=== PATIENT | female | born 1945 | race Caucasian/White ===

== ENCOUNTER 2023-11-21 06:24 | Emergency (ER) | payer OTHER, SELFPAY ==
--- NOTE | 2023-11-21 06:28 | ED.GENMED ---
History of Present Illness
General
Chief Complaint: Breathing Problem
Source: patient and ambulance crew
Time Seen by Provider: 11/21/23 06:28
History of Present Illness
History of Present Illness:
78 yr old female presents to ED with c/o congestion/prod cough for about a week. She was overall doing well until approx 1am, when she noted sob and ultimately called medics. Upon EMS arrival, pox nl, bp sl elevated, and ?sl rales at L base. Pt
was c/o n at that time, given zofran 4 mg on tx and remained stable. Blood sugar 90. Patient states that her daughter, whom she lives with, was recently ill. She thinks that she became sick because of that contact. She also notes that her
just 1 week ago. She denies fever, chills, anorexia (had pizza for dinner last night). She does report a dry mouth. She also denies pain in her chest but says she has a 'awareness' of the front of her chest for several days. She
denies any changes to this with deep breath. She also notes, when asked, she has very mild discomfort in her mid back 'where my lungs would be'. Patient is compliant with her DOAC. She denies leg swelling.
Past History
Past History
ED Past Medical History: Arrthythmia
ED Past Surgical History: Cardiac
Social History
Tobacco: Non-smoker
Alcohol: Daily
Drug: None
Personal:
Living: with family
Phy Exam
Physical Exam
Physical Exam:
GENERAL: Alert , in no apparent distress but appears anxious
EYE: pupils equal and reactive
NECK: Supple, no significant adenopathy.
ENT: o/p clr, mm dry
CARDIAC: Regular rate and rhythm .
LUNGS: Equal breath sounds bilaterally, no acute respiratory distress, speaks in full sentences easily, very slight wheezing noted with questionable rhonchi at the left base area
ABDOMEN: Soft, without focal tenderness, no r/g, no cvat
NEUROLOGICAL: Alert and oriented, no focal neuro deficits
SKIN: Warm and dry, skin intact.
MUSCULOSKELETAL: No edema, well perfused.
PSYCH: Normal and appropriate interaction but does appear slightly anxious.
Scores
Heart Failure Risk
Heart Failure Risk Score: Not Applicable
Course
Orders/Labs/Results
Orders:
Orders
11/21/23 06:39
Cardiac Monitoring- Treatment ONCE
Albuterol Nebs [Ventolin Nebules] 2.5 mg INH R NOW STA
Pulse Ox/cont/shift [RESP] Stat
Quantity: 1
11/21/23 06:40
Electrocardiogram (*1) Stat
Reason for Study: Other
Other Reason for Exam: pneumonia
EKG- Treatment ONCE
CR Chest - 2 Views Urgent
Comment:
Reason For Exam: sob
Peak Flow Rate [RESP] Urgent
Quantity: 1
Pre-Bronchodilator: Yes
Post Bronchodilator: Yes
Special Instructions: Pre and Post Peak Flow before and after Bronchodilator
11/21/23 06:43
COVID-19 Antigen Urgent
Source: Nasal Swab
Complete Blood Count/No Diff Urgent
Comprehensive Metabolic Panel Urgent
Lactic Acid Q4H
Comment: CANCEL 2nd LACTIC ACID IF 1st LACTIC ACID IS LESS THAN 2
NT-proBNP Urgent
Troponin I Urgent
Blood Culture Q30M
NILE Source: Blood/Venous
Specimen Description:
Blood Culture Q30M
NILE Source: Blood/Venous
Specimen Description:
Influenza A+B Rapid Molecular Urgent
NILE Source: Nasal Swab
Specimen Description:
11/21/23 08:00
Potassium Chloride [KCl] 40 meq PO NOW STA
11/21/23 10:45
Lactic Acid Q4H
Comment: CANCEL 2nd LACTIC ACID IF 1st LACTIC ACID IS LESS THAN 2
Abnormal Lab Results
11/21/23
06:43
MCH 32.4 H pg
(27.0-31.0)
Sodium 129 L mmol/L
(135-145)
Potassium 3.3 L mmol/L
(3.5-5.1)
Chloride 94 L mmol/L
(98-107)
Creatinine 0.4 L mg/dL
(0.6-1.0)
Glucose 128 H mg/dl
(70-99)
AST 40 H U/L
(14-36)
11/21/23 06:43
11/21/23 06:43
Vital Signs
Initial and Last Documented VS:
Initial Vital Signs
Temp Pulse Resp BP Pulse Ox
97.6 F 63 19 161/83 95
11/21/23 06:31 11/21/23 06:31 11/21/23 06:31 11/21/23 06:31 11/21/23 06:31
Last Documented Vital Signs
Temp Pulse Resp BP Pulse Ox
97.6 F 63 19 161/83 95
11/21/23 06:31 11/21/23 06:31 11/21/23 06:31 11/21/23 06:31 11/21/23 06:31
*Critical Care Note
Total Time (30-74mins, 75-104mins- exclusive of procedures): Not Applicable
Update Note
Update Note:
Patient presents to the Emergency Department with _shortness of breath
Number and Complexity of Problems Addressed at the Encounter
� Chronic conditions affecting care:
� Acute Exacerbation and/or Progression of Chronic Illness:
� Differential Diagnosis includes: But not limited to bronchitis, pneumonia, anxiety, heart failure, ACS, etc.
Amount and/or Complexity of Data to be Reviewed and Analyzed
� I performed an independent evaluation of and my interpretation is:
EKG:read by me, nl rate, nl axis, no ischemia noted
CT:
Xrays:cxr read by me, nad
Laboratory Studies:hypoNa noted (unclear if new/old, no prior to compare), mild hypoK, lactic wnl
Other:
� Review of other/old records reveals:
� Clinical information was obtained by an independent historian:
� Prescriptions/Medications Considered but not given:
� Further testing considered but not performed:
Risk of Complications and/or Morbidity or Mortality of Patient Management
� Social determinants of health affecting care:
� Discussion with other providers (PCP, Hospitalists, Consultants, etc):
� Escalation of care including admission/observation vs risk of discharge considered: 8:20 AM repeat assessment, patient walked to the bathroom with ease, overall extremely well-appearing, feels better status post nebulizer.
Lungs now clear to auscultation. I do not appreciate a cough during my time bedside with patient. She is in no distress. She is aware of her mild hyponatremia and hypokalemia and admits that she has not been taking her potassium pills recently.
I do not identify any medications in her med list that could precipitate hyponatremia and this is seemingly a new finding, however she is asymptomatic with this. She was given copies of her lab work and recommended to see her doctor on Thursday
morning for repeat assessment regarding. I suspect patient has bronchitis clinically, clinically doubt ACS, PE (specially because anticoagulated), etc. Discussed with patient portance of follow-up and reasons to return to the ER.
ED Attending Note
-
Portions of this chart may have been created with voice recognition software.� Occasional wrong word or��sound alike� substitutions may have occurred due to the inherent limitations of voice recognition software.
Discharge Plan
Departure
Patient Disposition: Home (Routine Discharge)
Date of Disposition: 11/21/23
Time of Disposition: 08:16
Patient with high blood pressure during this ER visit?: Yes
Condition: Good
Discharge Problem:
Bronchitis
Instructions: Bronchitis, Adult ED, Hyponatremia, BLOOD PRESSURE
Prescriptions:
New
albuterol-budesonide 90-80 mcg/actuation HFA aerosol inhaler
2 inh inhalation BID PRN (Reason: shortness of breath) Qty: 10.7 0RF
doxycycline hyclate 100 mg capsule
100 mg PO BID 7 Days Qty: 14 0RF
No Action
levothyroxine [Synthroid] 88 mcg Tablet
88 mcg PO DAILY
alprazolam 0.25 mg Tablet
0.25 mg PO DAILY PRN (Reason: anxiety )
omeprazole 10 mg Capsule,Delayed Release(Dr/Ec)
10 mg PO DAILY
potassium citrate 10 mEq (1,080 mg) Tablet Extended Release
10 meq PO TID
flecainide 50 mg Tablet
50 mg PO HS
flecainide 100 mg Tablet
100 mg PO DAILY
Patient Comments:
Take 100mg in AM and 50mg HS
metoprolol succinate 25 mg Tablet Extended Release 24 Hr
25 mg PO DAILY
ezetimibe 10 mg Tablet
10 mg PO HS
rosuvastatin 5 mg Tablet
5 mg PO DAILY
Eliquis 5 mg Tablet
5 mg PO BID
SlowMag Muscle Recovery 85 mg Tablet,Chewable
400 mg PO
Referrals:
Alfonso Wang MD [Family Provider] - 11/23/23
Activity Restrictions/Additional Instructions:
YOUR SODIUM LEVEL IS SLIGHTLY LOWER THAN NORMAL AND NEEDS TO BE RECHECKED ON THURSDAY. SEE ATTACHED LAB VALUES. PLEASE BRING THIS TO YOUR PHYSICIAN ON THURSDAY. IF YOU DEVELOP INCREASING OR PERSISTENT SHORTNESS OF BREATH, SHAKING CHILLS, CHEST PAIN
OR PRESSURE, VOMITING, SWELLING, OR OTHER WORRISOME SIGNS, PLEASE RETURN TO THE ER IMMEDIATELY.
Interventions
Interventions:
*General Assessment Last Done: 11/21/23 06:31
*Neglect/Abuse Screening Last Done: 11/21/23 06:31
ED- Fall Risk Assessment Last Done: 11/21/23 07:06
*ED COVID-19 Vaccine History Last Done: 11/21/23 06:31
ED- Cardiac Assessment Last Done: 11/21/23 07:06
ED- Pulmonary Assessment Last Done: 11/21/23 07:06
Discharge Date and Time
Print Language: BURKINAN
[2023-11-21 06:31] VITALS: BP 161/83
[2023-11-21 06:33] VITALS: BMI 27.3
[2023-11-21 06:56] LABS: Hemoglobin 13.6 g/dL (12.0-16.0); Mean Corp Hgb Conc. 35.8 g/dL (33.0-37.0); Mean Corpuscular Hgb 32.4 pg (27.0-31.0); Mean Corpuscular Volume 90.5 fL (81.0-99.0); Mean Platelet Volume 9.6 fL (7.4-10.4); Platelet Count 189 10^3/uL (130-400); Red Cell Dist. Width 12.5 % (11.5-14.5)
[2023-11-21] MEDS: VENTOLIN NEBULES 2.5 MG INH (07:01)
[2023-11-21 07:09] LABS: ALT (SGPT) 33 U/L (0-35); AST (SGOT) 40 U/L (14-36); Albumin 4.2 g/dl (3.5-5.0); Alkaline Phosphatase 71 U/L (38-126); Blood Urea Nitrogen 8 mg/dl (7-17); Calcium 9.2 mg/dl (8.4-10.2); Carbon Dioxide 24 mmol/L (22-30); Chloride 94 mmol/L (98-107); Estimated Creatinine Clearance 75 ml/min; Glucose 128 mg/dl (70-99); Potassium 3.3 mmol/L (3.5-5.1); Sodium 129 mmol/L (135-145); Total Bilirubin 0.8 mg/dl (0.2-1.3); Total Protein 6.6 g/dl (6.3-8.2); eGFR > 60.00
[2023-11-21 07:10] LABS: Lactic Acid 1.4 mmol/L (0.7-2.0)
[2023-11-21 07:12] LABS: COVID-19 Antigen Negative (Negative)
[2023-11-21 07:22] LABS: NT-proBNP 391 pg/ml; Troponin I < 0.012 ng/ml
[2023-11-21] MEDS: VIBRAMYCIN 100 MG PO (08:18)
[2023-11-21] MEDS: KCL 40 MEQ PO (08:18)
== END 2023-11-21 09:50 | disposition home or self-care (01) ==
LOC: EMR 06:24
PROVIDERS: EMERGENCY PHYSICIAN Emergency Medicine; FAMILY PHYSICIAN Internal Medicine
DX: J20.9 Acute bronchitis, unspecified (principal); R68.2 Dry mouth, unspecified; R03.0 Elevated blood-pressure reading, without diagnosis of hypertension; Z63.4 Disappearance and death of family member; Z11.52 Encounter for screening for COVID-19; Z88.6 Allergy status to analgesic agent; Z88.5 Allergy status to narcotic agent; Z79.01 Long term (current) use of anticoagulants
CPT/HCPCS: 99284; 94640; 94760; 71046; 80053; 83605; 83880; 84484; 85027; 87040; 87502; 87811; 93005

== ENCOUNTER 2025-06-08 17:38 | Inpatient (IN) | payer OTHER, SELFPAY ==
[2025-06-08] VITALS (7 sets, daily range): BP systolic 142–185; BP diastolic 73–102; BMI 28.3
[2025-06-08 15:31] LABS: Hematocrit 36.4 % (37.0-47.0); Hemoglobin 13.5 g/dL (12.0-16.0); Mean Corp Hgb Conc. 37.1 g/dL (33.0-37.0); Mean Corpuscular Volume 86.3 fL (81.0-99.0); Nucleated Red Blood Cells % 0 %; Platelet Count 277 10^3/uL (130-400); Red Cell Dist. Width 11.9 % (11.5-14.5)
[2025-06-08 15:56] LABS: ALT (SGPT) 47 U/L (0-35); AST (SGOT) 38 U/L (14-36); Albumin 4.6 g/dl (3.5-5.0); Alkaline Phosphatase 81 U/L (38-126); Blood Urea Nitrogen 5 mg/dl (7-17); Calcium 9.2 mg/dl (8.4-10.2); Carbon Dioxide 25 mmol/L (22-30); Chloride 84 mmol/L (98-107); Glucose 121 mg/dl (70-99); Lipase 59 U/L (23-300); Potassium 3.5 mmol/L (3.5-5.1); Sodium 118 mmol/L (135-145); Total Protein 7.0 g/dl (6.3-8.2); eGFR > 60.00
--- NOTE | 2025-06-08 16:04 | ED.GENMED ---
History of Present Illness
<Nhi Jara PA-C - Last Filed: 06/08/25 19:47>
General
Chief Complaint: Abdominal Symptoms
Source: patient
Exam Limitations: none
Time Seen by Provider: 06/08/25 15:45
History of Present Illness
History of Present Illness:
80yoF with a history of atrial fibrillation on flecainide and Eliquis, hypertension, hyperlipidemia, hypothyroidism presenting for evaluation of nausea. Symptoms have been ongoing for over a year and initially began after her in
October 2023. She has been following with her PCP and gastroenterology. She previously underwent endoscopy, colonoscopy, and CT scan without any obvious etiology for her symptoms. She was referred to psychiatry and was started on Zoloft about 5 weeks
ago. She has Zofran and Compazine at home which have not been helping. Her symptoms have been worsening over the past few days. She also feels constipated. Last bowel movement was yesterday but she had to strain and only passed a very small
amount of hard stool. She has some abdominal bloating and some pressure in her lower abdomen but she denies any overt pain. No vomiting. No chest pain or shortness of breath.
Past History
<Nhi Jara PA-C - Last Filed: 06/08/25 19:47>
Past History
ED Past Medical History: Arrthythmia
ED Past Surgical History: Cardiac
Social History
Tobacco: Non-smoker
Alcohol: Daily
Drug: None
Personal:
Living: with family
Phy Exam
<Nhi Jara PA-C - Last Filed: 06/08/25 19:47>
General Physical Exam
General Presentation: well appearing
General Skin: warm and dry
General Habitus: normal and elderly
General Mental: alert
General Hydration: appears well hydrated
ENT Exam
ENT Exam: normocephalic
Cardiovascular Exam
Cardiovascular Exam: regular rate/rhythm and no edema
Pulmonary Exam
Pulmonary Exam: lungs clear, no respiratory distress, no rales, no crackles, no rhonchi and no wheezing
Gastrointestinal Exam
Gastrointestinal Exam: non tender, soft and non distended
Neurological Exam
Neurological Exam: alert
[place] Coma Scale
Eye Opening: Spontaneous
Verbal Response: Oriented
Motor Response: Obeys Commands
GCS Total Score: 15
Skin Exam
Skin Exam: normal color and warm/dry
Psychiatric Exam
Psychiatric Exam: normal mood/affect
<Jadiel Carr MD - Last Filed: 06/08/25 22:08>
[place] Coma Scale
GCS Total Score: 15
Course
<Nhi Jara PA-C - Last Filed: 06/08/25 19:47>
Orders/Labs/Results
Orders:
Orders
06/08/25 Dinner
Regular
At Your Request: Full Participation
Does patient need a safe tray?: No
06/08/25 15:09
IV Insert/Care/Rem.- Treatment PRN
06/08/25 15:16
Complete Blood Count/With Diff Urgent
Comprehensive Metabolic Panel Urgent
Lipase Urgent
06/08/25 16:00
EKG [Electrocardiogram (*1)] Urgent
Reason for Study: Other
Other Reason for Exam: nausea
06/08/25 16:01
Electrocardiogram (*1) Urgent
Reason for Study: Other
Other Reason for Exam: nausea
CT Abd/pelvis W Iv Cont Urgent
Comment:
Reason For Exam: abd bloating, constipation
EKG- Treatment ONCE
EKG- Treatment ONCE
Ondansetron Injectable [Zofran] 4 mg IV NOW STA
06/08/25 16:16
Metoclopramide [Reglan] 5 mg IV NOW STA
06/08/25 16:21
Osmolality, Random Urine Urgent
Date Specimen was Collected: 06/08/25
Time Specimen was Collected: 16:13
Troponin I Urgent
Urine Sodium Urgent
Date Specimen was Collected: 06/08/25
Time Specimen was Collected: 16:13
06/08/25 16:38
3% Sodium Chloride 250 ml [Sodium Chloride 3%] 250 ml IV ONCE
06/08/25 17:00
3% Sodium Chloride 250 ml [Sodium Chloride 3%] 250 ml IV ONCE
06/08/25 17:03
Admit/Transfer Patient As Directed
Co-Sign Provider:
Level of Care: Inpatient admission
Assign to:: Telemetry
Physician / Group: poornima
Diagnosis: hyponatremia
Reason for Telemetry: Arrhythmia
Date to Stop Telemetry: 06/11/25
Time to Stop Telemetry: 11:00
Reason for Hospitalization: hyponatremia
Expected length of stay greater than two midnights?: Yes
ELOS- Estimated Length of Stay in days: 2
I certify the patient meets the requirements for IP care: Yes
06/08/25 17:04
Code Status As Directed
Resuscitation Status: Do not resuscitate
Reached after discussion with pt or family/Healthcare POA: Yes
DNR Bracelet Application ONCE
PRN Pain Medication Management As Directed
May give lesser potent ordered pain med per pt: Yes
preference::
Protocol:: Medication orders for pain may be administered in a
manner that supports deferring to patient preference
when the pt is:
- Requesting an ordered lesser potent pain medication.
Least to most potent pain medications are defined
as: acetaminophen < NSAID < tramadol < opioids
(morphine, oxycodone, hydromorphone).
- Requesting a lesser dose of the same medication IF
ORDERED.
- Requesting a less intrusive route of administration
if both routes are prescribed by the provider (PO <
IV).
06/08/25 18:20
Ondansetron Injectable [Zofran] 4 mg IV Q6HPRN PRN
06/08/25 18:20
NEPHROLOGY CONSULT Routine
Consulting Provider: Vini Cowart
Was physician already notified: Yes
VTE Contraindication Routine
VTE Mechanical Device Contraindication: Medical Contraindication
Pharmocologic Contraindication: Medical Contraindication
Activity As Directed
Activity Level: As Tolerated
Vital Signs As Directed
Frequency: Per unit guidelines
06/08/25 20:08
BMP [Basic Metabolic Panel] Q4
TSH Reflex To Free T4 Routine
06/08/25 22:00
Metoclopramide [Reglan] 10 mg IV Q6HPRN PRN
06/09/25 06:00
Complete Blood Count/With Diff IN AM
Comprehensive Metabolic Panel IN AM
06/11/25 11:00
DC Protocol for Telemetry ONCE
Abnormal Lab Results
06/08/25 06/08/25
15:16 16:21
Hct 36.4 L %
(37.0-47.0)
MCH 32.0 H pg
(27.0-31.0)
MCHC 37.1 H g/dL
(33.0-37.0)
Absolute Neuts (auto) 7.6 H 10^3/uL
(1.4-6.5)
Absolute Lymphs (auto) 0.9 L 10^3/uL
(1.2-3.4)
Absolute Monos (auto) 0.8 H 10^3/uL
(0.1-0.6)
Neutrophils % 81.0 H %
(42.2-75.2)
Lymphocytes % 9.5 L %
(20.5-51.1)
Sodium 118 L* mmol/L
(135-145)
Chloride 84 L mmol/L
(98-107)
BUN 5 L mg/dl
(7-17)
Creatinine 0.5 L mg/dL
(0.6-1.0)
Glucose 121 H mg/dl
(70-99)
Total Bilirubin 1.8 H mg/dl
(0.2-1.3)
AST 38 H U/L
(14-36)
ALT 47 H U/L
(0-35)
Urine Sodium 122 H mmol/L
(30-90)
06/08/25 15:16
06/08/25 15:16
Vital Signs
Initial and Last Documented VS:
Initial Vital Signs
Temp Pulse Resp BP Pulse Ox
97.7 F 78 20 160/90 99
06/08/25 14:29 06/08/25 14:29 06/08/25 14:29 06/08/25 14:29 06/08/25 14:29
Last Documented Vital Signs
Temp Pulse Resp BP Pulse Ox
97.7 F 80 18 163/100 97
06/08/25 18:46 06/08/25 19:24 06/08/25 18:46 06/08/25 19:24 06/08/25 18:46
<Jadiel Carr MD - Last Filed: 06/08/25 22:08>
Orders/Labs/Results
Orders:
Orders
06/08/25 Dinner
Regular
At Your Request: Full Participation
Does patient need a safe tray?: No
06/08/25 15:09
IV Insert/Care/Rem.- Treatment PRN
06/08/25 15:16
Complete Blood Count/With Diff Urgent
Comprehensive Metabolic Panel Urgent
Lipase Urgent
06/08/25 16:00
EKG [Electrocardiogram (*1)] Urgent
Reason for Study: Other
Other Reason for Exam: nausea
06/08/25 16:01
Electrocardiogram (*1) Urgent
Reason for Study: Other
Other Reason for Exam: nausea
CT Abd/pelvis W Iv Cont Urgent
Comment:
Reason For Exam: abd bloating, constipation
EKG- Treatment ONCE
EKG- Treatment ONCE
Ondansetron Injectable [Zofran] 4 mg IV NOW STA
06/08/25 16:16
Metoclopramide [Reglan] 5 mg IV NOW STA
06/08/25 16:21
Osmolality, Random Urine Urgent
Date Specimen was Collected: 06/08/25
Time Specimen was Collected: 16:13
Troponin I Urgent
Urine Sodium Urgent
Date Specimen was Collected: 06/08/25
Time Specimen was Collected: 16:13
06/08/25 16:38
3% Sodium Chloride 250 ml [Sodium Chloride 3%] 250 ml IV ONCE
06/08/25 17:00
3% Sodium Chloride 250 ml [Sodium Chloride 3%] 250 ml IV ONCE
06/08/25 17:03
Admit/Transfer Patient As Directed
Co-Sign Provider:
Level of Care: Inpatient admission
Assign to:: Telemetry
Physician / Group: poornima
Diagnosis: hyponatremia
Reason for Telemetry: Arrhythmia
Date to Stop Telemetry: 06/11/25
Time to Stop Telemetry: 11:00
Reason for Hospitalization: hyponatremia
Expected length of stay greater than two midnights?: Yes
ELOS- Estimated Length of Stay in days: 2
I certify the patient meets the requirements for IP care: Yes
06/08/25 17:04
Code Status As Directed
Resuscitation Status: Do not resuscitate
Reached after discussion with pt or family/Healthcare POA: Yes
DNR Bracelet Application ONCE
PRN Pain Medication Management As Directed
May give lesser potent ordered pain med per pt: Yes
preference::
Protocol:: Medication orders for pain may be administered in a
manner that supports deferring to patient preference
when the pt is:
- Requesting an ordered lesser potent pain medication.
Least to most potent pain medications are defined
as: acetaminophen < NSAID < tramadol < opioids
(morphine, oxycodone, hydromorphone).
- Requesting a lesser dose of the same medication IF
ORDERED.
- Requesting a less intrusive route of administration
if both routes are prescribed by the provider (PO <
IV).
06/08/25 18:20
Ondansetron Injectable [Zofran] 4 mg IV Q6HPRN PRN
06/08/25 18:20
NEPHROLOGY CONSULT Routine
Consulting Provider: Vini Cowart
Was physician already notified: Yes
VTE Contraindication Routine
VTE Mechanical Device Contraindication: Medical Contraindication
Pharmocologic Contraindication: Medical Contraindication
Activity As Directed
Activity Level: As Tolerated
Vital Signs As Directed
Frequency: Per unit guidelines
06/08/25 20:08
BMP [Basic Metabolic Panel] Q4
TSH Reflex To Free T4 Routine
06/08/25 22:00
Metoclopramide [Reglan] 10 mg IV Q6HPRN PRN
06/09/25 06:00
Complete Blood Count/With Diff IN AM
Comprehensive Metabolic Panel IN AM
06/11/25 11:00
DC Protocol for Telemetry ONCE
Abnormal Lab Results
06/08/25 06/08/25
15:16 16:21
Hct 36.4 L %
(37.0-47.0)
MCH 32.0 H pg
(27.0-31.0)
MCHC 37.1 H g/dL
(33.0-37.0)
Absolute Neuts (auto) 7.6 H 10^3/uL
(1.4-6.5)
Absolute Lymphs (auto) 0.9 L 10^3/uL
(1.2-3.4)
Absolute Monos (auto) 0.8 H 10^3/uL
(0.1-0.6)
Neutrophils % 81.0 H %
(42.2-75.2)
Lymphocytes % 9.5 L %
(20.5-51.1)
Sodium 118 L* mmol/L
(135-145)
Chloride 84 L mmol/L
(98-107)
BUN 5 L mg/dl
(7-17)
Creatinine 0.5 L mg/dL
(0.6-1.0)
Glucose 121 H mg/dl
(70-99)
Total Bilirubin 1.8 H mg/dl
(0.2-1.3)
AST 38 H U/L
(14-36)
ALT 47 H U/L
(0-35)
Urine Sodium 122 H mmol/L
(30-90)
06/08/25 15:16
06/08/25 15:16
Vital Signs
Initial and Last Documented VS:
Initial Vital Signs
Temp Pulse Resp BP Pulse Ox
97.7 F 78 20 160/90 99
06/08/25 14:29 06/08/25 14:29 06/08/25 14:29 06/08/25 14:29 06/08/25 14:29
Last Documented Vital Signs
Temp Pulse Resp BP Pulse Ox
97.7 F 80 18 163/100 97
06/08/25 18:46 06/08/25 19:24 06/08/25 18:46 06/08/25 19:24 06/08/25 18:46
<Nhi Jara PA-C - Last Filed: 06/08/25 19:47>
MDM/Problems Addressed
Differential Diagnosis Includes:
80yoF here with ongoing nausea for >1 year that is worsening x several days. No vomiting. She is hypertensive with otherwise normal vitals. Abdominal exam benign. Differential diagnosis includes: malignancy, PUD, GERD, dehydration, consider ACS
Labs obtained in triage. Severe hyponatremia noted with a sodium of 118. Last sodium was 129 in November 2023. She was recently started on Zoloft 5 weeks ago. She also takes chlorthalidone and flecainide. 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
appears euvolemic. Urine studies ordered. Discussed case with nephrology who recommends hypertonic saline at 20cc/hr. Patient admitted for further management.
<Nhi Jraa PA-C - Last Filed: 06/08/25 19:47>
*Pulse Oximetry
SaO2: 99
Oxygen Mode of Delivery: Room air
Patient hypoxic: no
*EKG
Interpreted by ED Provider?: Yes
EKG Intrepretation Date: 06/08/25
Heart Rate: 72
Rate: normal
Rhythm: sinus
Interval: long QT (QTc 483)
Ischemia: non-specific ST changes
*Critical Care Note
Total Time (30-74mins, 75-104mins- exclusive of procedures): Not Applicable
ED Attending Note
<Nhi Jara PA-C - Last Filed: 06/08/25 19:47>
-
Portions of this chart may have been created with voice recognition software.� Occasional wrong word or��sound alike� substitutions may have occurred due to the inherent limitations of voice recognition software.
<Jadiel Carr MD - Last Filed: 06/08/25 22:08>
ED Attending Note
Patient seen and examined by attending physician: Yes
I performed the substantive portion of visit, reviewed & personally made and approve the management plan that is documented in note by myself or SAMIA.: Yes
ED Attending Note:
I have seen and evaluated the patient with a [id number] encounter. I have spoken to the [SAMIA] and involved in the medical history, the physical exam, medical decision making.
Evaluation and management service: agree unless noted differently below.
Results interpretation: agree unless noted differently below.
80-year-old woman presenting to the emergency department with nausea vomiting for the past few days. Patient does state that she is on flecainide and recently was started on Zoloft when her symptoms worsen. She has had a full workup done by GI and
followed up with her PCP. On my examination patient does not appear dehydrated. Abdomen is soft nondistended nontender. Blood work does show critical hyponatremia of 118. Could be secondary to SIADH given Zoloft. Discussed with nephrology who
recommend hypertonic saline. Patient will need admission for further management.
Discharge Plan
Departure
Patient Disposition: Admit
Date of Disposition: 06/08/25
Time of Disposition: 16:18
Presentation/result/management discussed w/ accepting MD/DO: Hospitalist
Discharge Problem:
Hyponatremia, Nausea
Interventions
Interventions:
*General Assessment Last Done: 06/08/25 16:16
*Neglect/Abuse Screening Last Done: 06/08/25 16:16
*ED COVID-19 Vaccine History Last Done: 06/08/25 18:41
*ED Influenza Vaccine History Last Done: 06/08/25 14:24
[facility] Risk Assessment Tool Last Done: 06/08/25 18:03
*Risk Screen - Suicide (C-SSRS) Last Done: 06/08/25 14:24
*Nursing Disposition Last Done: 06/08/25 18:38
ZH-Xbsner-Uxyxkgosbj Assessment Last Done: 06/08/25 16:16
Discharge Date and Time
Discharge Date/Time: 06/08/25 18:39
[2025-06-08 16:59] LABS: Troponin I < 0.012 ng/ml
--- NOTE | 2025-06-08 17:08 | HPS.HSE ---
Addendum entered and electronically signed by Dexter Nava MD 06/08/25 19:11:
Hyponatremia secondary to Chlorthalidone plus addition of Zoloft. Hold both for now. Likely can continue only Zoloft after improvement of hyponatremia.
Original Note:
Family Physician
-
Family Physician: Alfonso Wang
Chief Complaint
-
nausea
History of Present Illness
80-year-old female past medical history of atrial fibrillation on Eliquis with pacemaker, hypertension, hyperlipidemia, hypothyroidism, presenting for nausea. Nausea and abdominal pain has been ongoing for a year initially started after her
in October 2023. She has been following with her primary care and gastroenterology. She previously underwent endoscopy, colonoscopy and CT scan without any obvious etiology of her symptoms. She was referred to psychiatry on Zoloft 5 weeks
ago. She has been taking Zofran and Compazine which helped improvement. Symptoms worsening over the past few days. He also feels constipated. Her last bowel movement yesterday but she had to strain and only pass a very small amount of hard
stool. She has some abdominal bloating and pressure in her lower abdomen but denies any overt pain. No chest pain or shortness of breath.
Dose of Zoloft was increased last week. She has not been drinking a lot of fluids.
She also complains of headache, feeling off balance, and generalized weakness. Denies numbness or tingling or focal weakness. Denies vertigo.
She drinks 2 martinis every day. Denies smoking.
Medical History
Past Medical History
Past Medical History: Reports Other ( atrial fibrillation on Eliquis with pacemaker, hypertension, hyperlipidemia, hypothyroidism,)
Past Surgical History: Reports None
Social History
Tobacco: Non-smoker
Alcohol: Daily
Drug: None
Family History
Family History: Not pertinent
Allergies / Home Medications
Allergies reflects when Allergies were last updated in [facility].
Home Medications with original date entered in [facility]
Allergy/Medication List:
Allergies
Allergy/AdvReac Type Severity Reaction Status Date / Time
acetaminophen (From Percocet) Allergy Vomiting Verified 06/08/25 14:22
oxycodone Allergy Vomiting Verified 06/08/25 14:22
Home Medications
albuterol 90 mcg-budesonide 80 mcg/actuation HFA aerosol inhaler 2 inh inhalation BID PRN shortness of breath #10.7 grams 11/21/23
alprazolam 0.25 mg tablet 0.25 mg PO DAILY PRN anxiety 11/21/23
apixaban 5 mg tablet (Eliquis) 5 mg PO BID 11/21/23
doxycycline hyclate 100 mg capsule 100 mg PO BID 7 days #14 caps 11/21/23
ezetimibe 10 mg tablet 10 mg PO HS 11/21/23
flecainide 100 mg tablet 100 mg PO DAILY 11/21/23
flecainide 50 mg tablet 50 mg PO HS 11/21/23
levothyroxine 88 mcg tablet (Synthroid) 88 mcg PO DAILY 11/21/23
magnesium citrate 85 mg chewable tablet (SlowMag Muscle Recovery) 400 mg PO 11/21/23
metoprolol succinate 25 mg tablet,extended release 24 hr 25 mg PO DAILY 11/21/23
omeprazole 10 mg capsule,delayed release 10 mg PO DAILY 11/21/23
potassium citrate 10 mEq (1,080 mg) tablet,extended release 10 meq PO TID 11/21/23
rosuvastatin 5 mg tablet 5 mg PO DAILY 11/21/23
Review of Systems
-
History Source: Patient
A 12 point ROS was completed and negative except as noted: Yes
Physical Exam
Vital Signs
Vital Signs
Temp Pulse Resp BP Pulse Ox
97.7 F 78 19 165/95 99
06/08/25 14:29 06/08/25 14:29 06/08/25 16:16 06/08/25 16:16 06/08/25 16:05
Physical Exam
General: Well Developed, Well Nourished and No Apparent Distress
HEENT: NormoCephalic, Moist mucous membranes and Atraumatic
Respiratory: Clear
Cardiac: S1/S2 and Regular Rhythm; No Murmur or Rub
GI: Soft, Non Tender, Non Distended and Normal Bowel Sounds; No Organomegaly
Rectal: Deferred by Provider
Musculoskeletal: No Clubbing, No Cyanosis and No Edema
Skin: No Rash
Neuro: Nonfocal/grossly intact
Laboratory Results
-
06/08/25 15:16
06/08/25 15:16
Laboratory Results
Total Bilirubin 1.8 mg/dl (0.2-1.3) H 06/08/25 15:16
AST 38 U/L (14-36) H 06/08/25 15:16
ALT 47 U/L (0-35) H 06/08/25 15:16
Alkaline Phosphatase 81 U/L (38-126) 06/08/25 15:16
Troponin I < 0.012 ng/ml 06/08/25 16:21
Lipase 59 U/L (23-300) 06/08/25 15:16
Data Reviewed
-
Lab Data: Labs Reviewed by me
Old Records: Reviewed
Impression/Plan
-
IMPRESSION:
PLAN:
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
- Sodium 118
-EKG shows atrial paced rhythm with prolonged AV conduction,
- Check urine sodium, osmolality
- Hypertonic saline at 20 cc/h
-BMP every 4 hours
-Santy Hankins
- Nephrology consulted
# Constipation
- CT abdomen pelvis pending
- Likely will need to start MiraLAX
Paroxysmal atrial fibrillation with pacemaker
- Continue Eliquis
- Continue flecainide
- Continue metoprolol
Essential hypertension
Hyperlipidemia
- Continue statin
Hypothyroidism
- Continue levothyroxine
Anxiety/depression
- Continue Xanax
DNR/DNI
DVT prophylaxis�heparin
Regular diet
[2025-06-08] MEDS: REGLAN 5 MG IV (17:09)
[2025-06-08] MEDS: SODIUM CHLORIDE 3% 250 IV (17:10)
[2025-06-08] MEDS: ELIQUIS 5 MG PO (20:20)
[2025-06-08] MEDS: ZOFRAN ODT (ORALLY DISINTEGRATING) 8 MG PO (20:21)
[2025-06-08] MEDS: PROTONIX 40 MG PO (20:21)
[2025-06-08 20:46] LABS: Blood Urea Nitrogen 5 mg/dl (7-17); Calcium 9.6 mg/dl (8.4-10.2); Carbon Dioxide 23 mmol/L (22-30); Chloride 89 mmol/L (98-107); Estimated Creatinine Clearance 82 ml/min; Glucose 156 mg/dl (70-99); Potassium 3.7 mmol/L (3.5-5.1); Sodium 121 mmol/L (135-145); eGFR > 60.00
[2025-06-08] MEDS: TAMBOCOR 100 MG PO (21:58)
[2025-06-08] MEDS: MIRALAX 17 GRAMS PO (21:59)
[2025-06-08] MEDS: AMBIEN 5 MG PO (22:00)
[2025-06-08] MEDS: ZETIA 10 MG PO (22:01)
[2025-06-08] MEDS: CRESTOR 5 MG PO (22:01)
[2025-06-09] VITALS (8 sets, daily range): BP systolic 115–163; BP diastolic 56–93; PULSE 2–86
[2025-06-09 00:40] LABS: Sodium 122 mmol/L (135-145)
[2025-06-09] MEDS: SYNTHROID 88 MCG PO (04:33)
[2025-06-09 04:46] LABS: Hematocrit 36.2 % (37.0-47.0); Hemoglobin 13.2 g/dL (12.0-16.0); Mean Corp Hgb Conc. 36.5 g/dL (33.0-37.0); Mean Corpuscular Volume 88.1 fL (81.0-99.0); Nucleated Red Blood Cells % 0 %; Platelet Count 236 10^3/uL (130-400); Red Cell Dist. Width 12.0 % (11.5-14.5)
[2025-06-09 05:13] LABS: Blood Urea Nitrogen 6 mg/dl (7-17); Calcium 9.1 mg/dl (8.4-10.2); Carbon Dioxide 25 mmol/L (22-30); Chloride 92 mmol/L (98-107); Estimated Creatinine Clearance 82 ml/min; Glucose 94 mg/dl (70-99); Potassium 3.5 mmol/L (3.5-5.1); Sodium 123 mmol/L (135-145); eGFR > 60.00
--- NOTE | 2025-06-09 07:24 | W.PN.HOSP.TC ---
Today's Communication/Plan
-
samsca as per nephro
monitor sodium
cont miralax constipation
Counseled to cut back on drinking, no significant withdrawal symptoms noted at this time.
Assessment / Plan
Assessment / Plan
Physical Exam
General: no acute distress, appears comfortable at this time
HEENT: NormoCephalic, Moist mucous membranes and Atraumatic
Respiratory: Clear
Cardiac: S1/S2 and Regular Rhythm; No Murmur or Rub
GI: Soft, Non Tender, Non Distended and Normal Bowel Sounds; No Organomegaly
Musculoskeletal: No Clubbing, No Cyanosis and No Edema
Skin: No Rash
Neuro: AOx3 conversant coherent
Psych: calm
80F pAfib Eliquis ppm HTN HLD Hypothyroidism here for nausea hyponatremia and constipation.
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
-Initial Na 118 since improved
- received Hypertonic saline since completed
-Zofran, Reglan
- Nephrology eval appreciated once [facility] 06/[facility]
-monitor Na, avoid overcorrection
# Constipation
- CT abdomen pelvis appreciated no acute abn's
- cont Miralax
#Paroxysmal atrial fibrillation with pacemaker
#Essential hypertension
- Continue Eliquis
- Continue flecainide
- Continue metoprolol
#Hyperlipidemia
- Continue statin
#Hypothyroidism
- Continue levothyroxine
#Anxiety/depression
- Continue Xanax
#ETOH use
reports daily 2 glasses Martini
Counseled to cut back on drinking
DNR/DNI
DVT prophylaxis�heparin
Regular diet
Discussed with patient and patient's daughter Марина
I spent a total of 45 minutes with the patient or on the floor. More than 50% of this time involved counseling and coordination of care.
Anticipated Discharge: 24 - 48 hours
Subjective/Interval History
-
Date of Service: June 09, 2025
No acute distress, sitting up comfortably in bed. Overall reports feeling well, notes some fine hand tremors but otherwise denies new acute issues. constipation resolved, had bowel movement this morning. Daughter Марина present during evaluation.
Objective Data
-
Labs:
Laboratory Results
06/08/25 06/09/25 06/09/25
20:08 00:10 04:20
WBC 8.4
Hgb 13.2
Hct 36.2 L
Plt Count 236
Sodium 121 L 122 L 123 L
Potassium 3.7 3.5
Chloride 89 L 92 L
Carbon Dioxide 23 25
BUN 5 L 6 L
Creatinine 0.5 L 0.5 L
Glucose 156 H 94
Calcium 9.6 9.1
Total Bilirubin
AST
ALT
Alkaline Phosphatase
06/09/25 06/09/25
06:00 08:00
WBC Cancelled
Hgb Cancelled
Hct Cancelled
Plt Count Cancelled
Sodium Cancelled Pending
Potassium Cancelled
Chloride Cancelled
Carbon Dioxide Cancelled
BUN Cancelled
Creatinine Cancelled
Glucose Cancelled
Calcium Cancelled
Total Bilirubin Cancelled
AST Cancelled
ALT Cancelled
Alkaline Phosphatase Cancelled
Vital Signs:
Vital Signs
Temp Pulse Resp BP Pulse Ox
98.1 F 62 18 146/78 96
06/09/25 03:23 06/09/25 03:23 06/09/25 03:23 06/09/25 03:23 06/09/25 03:23
I&O
06/08/25 06/09/25 06/10/25
06:59 06:59 06:59
Intake Total 135 / 135
Balance 135 / 135
[2025-06-09] MEDS: ZOFRAN ODT (ORALLY DISINTEGRATING) 8 MG PO ×2 (08:48→20:07)
[2025-06-09] MEDS: TOPROL XL 25 MG PO (08:48)
[2025-06-09] MEDS: PROTONIX 40 MG PO ×2 (08:48→20:07)
[2025-06-09] MEDS: ELIQUIS 5 MG PO ×2 (08:48→20:06)
[2025-06-09] MEDS: TAMBOCOR 100 MG PO ×2 (08:49→20:07)
[2025-06-09] MEDS: MIRALAX 17 GRAMS PO (08:54)
[2025-06-09 09:33] LABS: Sodium 122 mmol/L (135-145)
[2025-06-09] MEDS: SAMSCA 15 MG PO (10:54)
--- NOTE | 2025-06-09 12:41 | CM ---
patient seen at bedside
IA completed
Lives with dtr 1 story home, [address]
Plof: Independent
DME: [facility], CPAP
Denies VN/has had outpatient rehab in past
PCP: Dulce Wang
Pharmacy: [facility]
PLAN: home, no needs anticipated, CM to continue to follow
[2025-06-09 13:05] LABS: Blood Urea Nitrogen 6 mg/dl (7-17); Calcium 9.6 mg/dl (8.4-10.2); Carbon Dioxide 25 mmol/L (22-30); Chloride 87 mmol/L (98-107); Estimated Creatinine Clearance 82 ml/min; Glucose 108 mg/dl (70-99); Potassium 3.6 mmol/L (3.5-5.1); Sodium 123 mmol/L (135-145); eGFR > 60.00
--- NOTE | 2025-06-09 13:18 | W.CON.NEPH ---
Consultation
-
Date/Time Consultation Requested: June 08, 2025 at 5:00 p.m.
Date/Time Consultation Performed: June 09, 2025 12:00 p.m.
Requesting Provider: Dexter Nava I
Performing Provider: Dr. Cowart
Reason for Consultation: hyponatremia
Medical History
-
Chief Complaint: hyponatremia
History of Present Illness:
80-year-old female past medical history of atrial fibrillation on Eliquis with pacemaker, hypertension, hyperlipidemia, hypothyroidism, presenting for nausea. Nausea and abdominal pain has been ongoing for a year worked up by GI normal imaging and
scope She was referred to psychiatry on Zoloft 5 weeks ago.
laboratories found a sodium of 118 therefore renal consult
responded to hypertonic saline
also on chlorthalidone for years
drinks 2 martinis a day
nonsmoker no history of smoking
Past Medical History
past medical history of atrial fibrillation on Eliquis with pacemaker, hypertension, hyperlipidemia, hypothyroidism
Social History
Tobacco: Non-Smoker
Alcohol: Daily
Family History
Family History: Not Pertinent
Allergies / Home Medications
Allergy/AdvReac Type Severity Reaction Status Date / Time
acetaminophen (From Percocet) Allergy Vomiting Verified 06/08/25 14:22
oxycodone Allergy Vomiting Verified 06/08/25 14:22
�Medication �Instructions �Recorded �Confirmed �Type
apixaban 5 mg tablet (Eliquis) 5 mg PO BID Blood Clot 11/21/23 06/08/25 History
Prevention/Tx
ezetimibe 10 mg tablet 10 mg PO HS High Cholesterol 11/21/23 06/08/25 History
flecainide 100 mg tablet 100 mg PO BID Arrhythmia 11/21/23 06/08/25 History
levothyroxine 88 mcg tablet 88 mcg PO DAILY Thyroid 11/21/23 06/08/25 History
(Synthroid)
metoprolol succinate 25 mg 25 mg PO DAILY Blood Pressure 11/21/23 06/08/25 History
tablet,extended release 24 hr
rosuvastatin 5 mg tablet 5 mg PO HS High Cholesterol 11/21/23 06/08/25 History
Slow-Mag 2 tab PO BID Supplement 06/08/25 06/08/25 History
Voltaren 1 applic topical BIDPRN PRN apply 06/08/25 06/08/25 History
to B/L knees
acetaminophen 325 mg tablet 650 mg PO DAILYPRN PRN mild pain 06/08/25 06/08/25 History
(Tylenol)
chlorthalidone 25 mg tablet 12.5 mg PO DAILY Fluid 06/08/25 06/08/25 History
Retention/Swelling
ondansetron 8 mg disintegrating 8 mg PO Q8H PRN nausea/vomiting 06/08/25 06/08/25 History
tablet
pantoprazole 40 mg tablet,delayed 40 mg PO BID Gastrointestinal Issue 06/08/25 06/08/25 History
release
prochlorperazine maleate 5 mg 5 mg PO Q6HPRN PRN nausea/vomiting 06/08/25 06/08/25 History
tablet
sertraline 50 mg tablet 75 mg PO DAILY Mental 06/08/25 06/08/25 History
Health/Anxiety
simethicone 80 mg chewable tablet 160 mg PO DAILYPRN PRN gas 06/08/25 06/08/25 History
triamcinolone acetonide 0.1 % 1 applic topical BIDPRN PRN rosacea 06/08/25 06/08/25 History
topical cream
zolpidem 6.25 mg tablet,extended 6.25 mg PO HS Sleep 06/08/25 06/08/25 History
release,multiphase
Review of Systems
-
nausea resolved
All other systems: Negative unless noted
Physical Exam
Vital Signs
Vital Signs
Temp Pulse Resp BP Pulse Ox
98.3 F 72 18 152/86 97
06/09/25 11:18 06/09/25 11:18 06/09/25 11:18 06/09/25 11:18 06/09/25 09:49
Lab Results
WBC Cancelled 06/09/25 06:00
RBC Cancelled 06/09/25 06:00
Hgb Cancelled 06/09/25 06:00
Hct Cancelled 06/09/25 06:00
Plt Count Cancelled 06/09/25 06:00
Sodium 123 mmol/L (135-145) L 06/09/25 12:23
Potassium 3.6 mmol/L (3.5-5.1) 06/09/25 12:23
Chloride 87 mmol/L (98-107) L 06/09/25 12:23
Carbon Dioxide 25 mmol/L (22-30) 06/09/25 12:23
BUN 6 mg/dl (7-17) L 06/09/25 12:23
Creatinine 0.5 mg/dL (0.6-1.0) L 06/09/25 12:23
eGFR > 60.00 06/09/25 12:23
Glucose 108 mg/dl (70-99) H 06/09/25 12:23
Calcium 9.6 mg/dl (8.4-10.2) 06/09/25 12:23
Albumin Cancelled 06/09/25 06:00
Physical Exam
General no acute distress
HEENT no cephalic atraumatic extraocular muscle intact no scleral icterus no JVD neck supple
lungs clear to auscultation bilateral
heart regular S1-S2 positive
abdomen soft nontender positive bowel sounds
extremities no edema pulses present bilateral
Neurologically nonfocal alert and oriented x 3
Skin no lesions no abrasions no petechiae
Psych normal affect no bizarre behavior
Data Reviewed
-
CT Scan: Image Personally Visualized and interpreted
Labs: Labs Reviewed by me, Discussed with Physician and Discussed with Patient
Assessment/Plan
-
80-year-old female past medical history of atrial fibrillation on Eliquis with pacemaker, hypertension, hyperlipidemia, hypothyroidism, presenting for nausea. Nausea and abdominal pain has been ongoing for a year worked up by GI normal imaging and
scope She was referred to psychiatry on Zoloft 5 weeks ago.
laboratories found a sodium of 118 therefore renal consult
responded to hypertonic saline
also on chlorthalidone for years
drinks 2 martinis a day
nonsmoker no history of smoking
impression
hyponatremia medication induced SIADH from Zoloft in combination with thiazide diuretic
anxiety
AFib stable
plan
status post hypertonic
Samsca x1
repeat serial labs
and fluid restrict
increase protein in diet
possible we can continue Zoloft without chlorthalidone going forward with close management including fluid restriction salt and high-protein diet
discussed with the patient and her family at bedside at length
[2025-06-09] MEDS: ZETIA 10 MG PO (21:31)
[2025-06-09] MEDS: CRESTOR 5 MG PO (21:31)
[2025-06-09] MEDS: AMBIEN 5 MG PO (21:31)
[2025-06-10] VITALS (7 sets, daily range): BP systolic 131–157; BP diastolic 66–94; PULSE 78; O2SAT 97
[2025-06-10] MEDS: SYNTHROID 88 MCG PO (05:59)
--- NOTE | 2025-06-10 07:11 | W.PN.HOSP.TC ---
Today's Communication/Plan
-
cont monitoring
likely discharge tomorrow if remains stable/cont to improve
Assessment / Plan
Assessment / Plan
Physical Exam
General: no acute distress, appears comfortable at this time
HEENT: NormoCephalic, Moist mucous membranes and Atraumatic
Respiratory: Clear
Cardiac: S1/S2 and Regular Rhythm; No Murmur or Rub
GI: Soft, Non Tender, Non Distended and Normal Bowel Sounds; No Organomegaly
Musculoskeletal: No Clubbing, No Cyanosis and No Edema
Skin: No Rash
Neuro: AOx3 conversant coherent
Psych: calm
80F pAfib Eliquis ppm HTN HLD Hypothyroidism here for nausea hyponatremia and constipation.
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
-Initial Na 118 since improved
- received Hypertonic saline since completed
-Nhi Reglan
- Nephrology eval appreciated once [facility] 06/09
-monitor Na, avoid overcorrection
# Constipation
- CT abdomen pelvis appreciated no acute abn's
- cont Miralax
#HTN
-Cont Metoprolol
-Chlorthalidone discontinued due to hyponatremia
-monitor and adjust antihypertensive regimen as necessary
#Paroxysmal atrial fibrillation with pacemaker
#Essential hypertension
- Continue Eliquis
- Continue flecainide
- Continue metoprolol
#Hyperlipidemia
- Continue statin
#Hypothyroidism
- Continue levothyroxine
#Anxiety/depression
- Continue Xanax
#ETOH use
reports daily 2 glasses Martini
Counseled to cut back on drinking
PT eval appreciated Home Services, patient however prefers outpt therapy because she has dogs at home.
DNR/DNI
DVT prophylaxis�heparin
Regular diet
Discussed with patient and patient's daughter Марина
I spent a total of 45 minutes with the patient or on the floor. More than 50% of this time involved counseling and coordination of care.
Anticipated Discharge: Within 24 hours
Subjective/Interval History
-
Date of Service: June 10, 2025
no acute distress sitting up comfortably in bed. Overall reports feeling well, constipation resolving.
Objective Data
-
Labs:
Laboratory Results
06/10/25
06:00
Sodium Pending
Potassium Pending
Chloride Pending
Carbon Dioxide Pending
BUN Pending
Creatinine Pending
Glucose Pending
Calcium Pending
Vital Signs:
Vital Signs
Temp Pulse Resp BP Pulse Ox
98.5 F 61 18 157/77 98
06/10/25 03:42 06/10/25 03:42 06/10/25 03:42 06/10/25 03:42 06/10/25 03:42
I&O
06/09/25 06/10/25 06/11/25
06:59 06:59 06:59
Intake Total 135 / 135 1560 / 1560
Balance 135 / 135 1560 / 1560
[2025-06-10 09:10] LABS: Blood Urea Nitrogen 9 mg/dl (7-17); Calcium 9.6 mg/dl (8.4-10.2); Carbon Dioxide 25 mmol/L (22-30); Chloride 98 mmol/L (98-107); Estimated Creatinine Clearance 82 ml/min; Glucose 111 mg/dl (70-99); Potassium 3.9 mmol/L (3.5-5.1); Sodium 131 mmol/L (135-145); eGFR > 60.00
[2025-06-10] MEDS: PROTONIX 40 MG PO ×2 (09:52→21:06)
[2025-06-10] MEDS: TOPROL XL 25 MG PO (09:52)
[2025-06-10] MEDS: TAMBOCOR 100 MG PO ×2 (09:53→21:06)
[2025-06-10] MEDS: ELIQUIS 5 MG PO ×2 (09:53→21:07)
[2025-06-10] MEDS: MIRALAX 17 GRAMS PO (09:53)
[2025-06-10] MEDS: ZOFRAN ODT (ORALLY DISINTEGRATING) 8 MG PO (09:58)
--- NOTE | 2025-06-10 12:58 | W.PN.NEPH.PH ---
Today's Communication / Plan
-
discontinue off Zoloft and chlorthalidone otherwise okay from a renal standpoint for discharge
Assessment/Plan
-
80-year-old female past medical history of atrial fibrillation on Eliquis with pacemaker, hypertension, hyperlipidemia, hypothyroidism, presenting for nausea. Nausea and abdominal pain has been ongoing for a year worked up by GI normal imaging and
scope She was referred to psychiatry on Zoloft 5 weeks ago.
laboratories found a sodium of 118 therefore renal consult
responded to hypertonic saline
also on chlorthalidone for years
drinks 2 martinis a day
nonsmoker no history of smoking
impression
hyponatremia medication induced SIADH from Zoloft in combination with thiazide diuretic
anxiety
AFib stable
plan
status post hypertonic
Samsca x1
repeat serial labs
and fluid restrict
increase protein in diet
sodium 131 okay for discharge from renal standpoint.
Would discharge off chlorthalidone and Zoloft. We had a lengthy discussion about Zoloft effectiveness as she feels it is not working anyway. She can follow this up with her primary care doctor.
Suggest adding amlodipine for blood pressure control off chlorthalidone
-
-
Date of Service: June 10, 2025
CC / HPI / ROS
-
Chief Complaint:
hyponatremia
History of Present Illness:
presents with hyponatremia secondary to medications as Zoloft conjunction with chlorthalidone.
Sodium 131
Review of Systems:
no chest pain or shortness of breath
Labs
-
Labs:
WBC Cancelled 06/09/25 06:00
RBC Cancelled 06/09/25 06:00
Hgb Cancelled 06/09/25 06:00
Hct Cancelled 06/09/25 06:00
Plt Count Cancelled 06/09/25 06:00
Sodium 131 mmol/L (135-145) L D 06/10/25 08:10
Potassium 3.9 mmol/L (3.5-5.1) 06/10/25 08:10
Chloride 98 mmol/L (98-107) 06/10/25 08:10
Carbon Dioxide 25 mmol/L (22-30) 06/10/25 08:10
BUN 9 mg/dl (7-17) 06/10/25 08:10
Creatinine 0.5 mg/dL (0.6-1.0) L 06/10/25 08:10
eGFR > 60.00 06/10/25 08:10
Glucose 111 mg/dl (70-99) H 06/10/25 08:10
Calcium 9.6 mg/dl (8.4-10.2) 06/10/25 08:10
Albumin Cancelled 06/09/25 06:00
Physical Exam
-
Vital Signs:
Vital Signs
Temp Pulse Resp BP Pulse Ox
98.1 F 72 16 133/74 98
06/10/25 11:46 06/10/25 11:46 06/10/25 11:46 06/10/25 11:46 06/10/25 11:46
Respiratory:: Bilateral: CTA
Lung Excursion:: Normal
Abdomen:: Soft
Bowel Sounds:: Normal
Extremity Edema:: None: Bilateral:
[2025-06-10] MEDS: ZETIA 10 MG PO (21:11)
[2025-06-10] MEDS: CRESTOR 5 MG PO (21:11)
[2025-06-10] MEDS: TYLENOL 650 MG PO (21:13)
[2025-06-10] MEDS: AMBIEN 5 MG PO (21:13)
[2025-06-11 03:45] VITALS: BP 140/78
[2025-06-11] MEDS: SYNTHROID 88 MCG PO (06:03)
[2025-06-11 07:10] VITALS: BP 158/80
--- NOTE | 2025-06-11 07:56 | W.PN.HOSP.TC ---
Today's Communication/Plan
-
discharge
Assessment / Plan
Assessment / Plan
Physical Exam
General: no acute distress, appears comfortable at this time
HEENT: NormoCephalic, Moist mucous membranes and Atraumatic
Respiratory: Clear
Cardiac: S1/S2 and Regular Rhythm; No Murmur or Rub
GI: Soft, Non Tender, Non Distended and Normal Bowel Sounds; No Organomegaly
Musculoskeletal: No Clubbing, No Cyanosis and No Edema
Skin: No Rash
Neuro: AOx3 conversant coherent
Psych: calm
80F pAfib Eliquis ppm HTN HLD Hypothyroidism here for nausea hyponatremia and constipation.
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
- received Hypertonic saline since completed
-Santy Hankins
- Nephrology eval appreciated once [facility] 06/09
-Initial Na 118 since improved to 130s
# Constipation resolved
- CT abdomen pelvis appreciated no acute abn's
- Miralax prn
#HTN
-Cont Metoprolol
-Chlorthalidone discontinued due to hyponatremia
-Amlodipine as per nephro
#Paroxysmal atrial fibrillation with pacemaker
#Essential hypertension
- Continue Eliquis
- Continue flecainide
- Continue metoprolol
#Hyperlipidemia
- Continue statin
#Hypothyroidism
- Continue levothyroxine
#Anxiety/depression/insmonia
- Continue home Ambien HS [correction to prior documentation, patient not on Xanax]
- Zoloft discontinued
#ETOH use
reports daily 2 glasses Martini
Counseled to cut back on drinking
PT eval appreciated [facility], patient however prefers outpt therapy because she has dogs at home. Script provided to facilitate
DNR/DNI
DVT prophylaxis�heparin
Regular diet
Medically stable for discharge home with outpt follow up recommendations.
Discussed with patient and patient's daughter Марина
Total Time Preparing Discharge __40 minutes including examination of the patient, summary of the hospital stay, instructions for continuing care to all relevant caregivers; and preparation of discharge records, prescriptions, and referral
forms if necessary.
Anticipated Discharge: Today
Subjective/Interval History
-
Date of Service: June 11, 2025
No acute distress, reports back pain and headache since improved/resolved with lidocaine patches and Tylenol. Otherwise reports feeling well. Eager to go home
Objective Data
-
Labs:
Laboratory Results
06/11/25
06:00
Sodium Pending
Potassium Pending
Chloride Pending
Carbon Dioxide Pending
BUN Pending
Creatinine Pending
Glucose Pending
Calcium Pending
Vital Signs:
Vital Signs
Temp Pulse Resp BP Pulse Ox
98.2 F 61 18 140/78 98
06/11/25 03:45 06/11/25 03:45 06/11/25 03:45 06/11/25 03:45 06/11/25 03:45
I&O
06/10/25 06/11/25 06/12/25
06:59 06:59 06:59
Intake Total 1560 / 1560 840 / 840
Balance 1560 / 1560 840 / 840
[2025-06-11 09:35] LABS: Blood Urea Nitrogen 12 mg/dl (7-17); Calcium 9.6 mg/dl (8.4-10.2); Carbon Dioxide 26 mmol/L (22-30); Chloride 95 mmol/L (98-107); Estimated Creatinine Clearance 82 ml/min; Glucose 135 mg/dl (70-99); Potassium 4.0 mmol/L (3.5-5.1); Sodium 130 mmol/L (135-145); eGFR > 60.00
[2025-06-11] MEDS: PROTONIX 40 MG PO (09:36)
[2025-06-11] MEDS: TAMBOCOR 100 MG PO (09:36)
[2025-06-11] MEDS: ELIQUIS 5 MG PO (09:36)
[2025-06-11] MEDS: TOPROL XL 25 MG PO (09:36)
[2025-06-11] MEDS: MIRALAX PO (09:37)
[2025-06-11] MEDS: LIDOCAINE 4% PATCH 2 PATCH TOPICAL (10:33)
[2025-06-11] MEDS: TYLENOL 1000 MG PO (10:33)
--- NOTE | 2025-06-11 10:50 | W.PN.NEPH.PH ---
Today's Communication / Plan
-
will add amlodipine in place of chlorthalidone for better blood pressure control
sodium okay for discharge with follow-up in our office 2 weeks
Assessment/Plan
-
80-year-old female past medical history of atrial fibrillation on Eliquis with pacemaker, hypertension, hyperlipidemia, hypothyroidism, presenting for nausea. Nausea and abdominal pain has been ongoing for a year worked up by GI normal imaging and
scope She was referred to psychiatry on Zoloft 5 weeks ago.
laboratories found a sodium of 118 therefore renal consult
responded to hypertonic saline
also on chlorthalidone for years
drinks 2 martinis a day
nonsmoker no history of smoking
impression
hyponatremia medication induced SIADH from Zoloft in combination with thiazide diuretic
anxiety
AFib stable
plan
status post hypertonic
Samsca x1
repeat serial labs
and fluid restrict
increase protein in diet
sodium 131 > 130 okay for discharge from renal standpoint.
Would discharge off chlorthalidone and Zoloft. We had a lengthy discussion about Zoloft effectiveness as she feels it is not working anyway. She can follow this up with her primary care doctor.
will add amlodipine in place of chlorthalidone for better blood pressure control
-
-
Date of Service: June 11, 2025
CC / HPI / ROS
-
Chief Complaint:
hyponatremia
History of Present Illness:
presents with hyponatremia secondary to medications as Zoloft conjunction with chlorthalidone.
Sodium 131
Review of Systems:
no chest pain or shortness of breath
Labs
-
Labs:
WBC Cancelled 06/09/25 06:00
RBC Cancelled 06/09/25 06:00
Hgb Cancelled 06/09/25 06:00
Hct Cancelled 06/09/25 06:00
Plt Count Cancelled 06/09/25 06:00
Sodium 130 mmol/L (135-145) L 06/11/25 08:44
Potassium 4.0 mmol/L (3.5-5.1) 06/11/25 08:44
Chloride 95 mmol/L (98-107) L 06/11/25 08:44
Carbon Dioxide 26 mmol/L (22-30) 06/11/25 08:44
BUN 12 mg/dl (7-17) 06/11/25 08:44
Creatinine 0.5 mg/dL (0.6-1.0) L 06/11/25 08:44
eGFR > 60.00 06/11/25 08:44
Glucose 135 mg/dl (70-99) H 06/11/25 08:44
Calcium 9.6 mg/dl (8.4-10.2) 06/11/25 08:44
Albumin Cancelled 06/09/25 06:00
Physical Exam
-
Vital Signs:
Vital Signs
Temp Pulse Resp BP Pulse Ox
98 F 62 16 158/80 98
06/11/25 07:10 06/11/25 09:36 06/11/25 07:10 06/11/25 09:36 06/11/25 07:10
Respiratory:: Bilateral: CTA
Lung Excursion:: Normal
Abdomen:: Soft
Bowel Sounds:: Normal
Extremity Edema:: None: Bilateral:
[2025-06-11 11:00] VITALS: BP 153/86
[2025-06-11] MEDS: NORVASC 5 MG PO (12:04)
[2025-06-11 12:55] VITALS: BP 148/74; PULSE 61; O2SAT 98
--- NOTE | 2025-06-11 13:33 | W.DCSUMMARY ---
Discharge Summary
Discharge Data
Date of Admission: 06/08/25
Date of Discharge: 06/11/25
-
Pending Results: No
Discharge Plan
-
Patient Disposition: Home (Routine Discharge)
Discharge Diagnosis/Procedures: Hyponatremia
Hypertension
Constipation
Condition: Fair
Diet: Regular and Restrict fluids to 64 oz
Activity: As tolerated and With Walker
Additional Activity: Outpatient Physical/Occupational Therapy recommended, script provided to facilitate
Driving Restrictions: As prior to admission
Bathing Restrictions: None
Blood Work: Repeat BMP with primary care provider in 1 week of discharge.
Other Services: PT and OT
Activity Restrictions/Additional Instructions:
Follow up with primary care provider in 1 week of discharge and Nephrology in 2 weeks of discharge.
Chlorthalidone has been discontinued due to severe hyponatremia. Amlodipine has been prescribed as replacement for blood pressure control/treatment Hypertension.
Please keep a log of your pressures at home twice a day- to review with your primary care provider in follow up for further evaluation/treatment hypertension.
Zoloft has also been discontinued due to severe hyponatremia.
Lidocaine patches have been prescribed for back pain. These are available over the counter.
Please take medications as prescribed/recommended and follow up with primary care provider and/or other healthcare provider involved in your care for refills and/or further adjustment to your medication regimen as necessary.
Abstaining from further alcohol use is recommended.
Referrals:
Vini Cowart DO [Active, Nephrology] - in two weeks
Alfonso Wang MD [Family Provider, Internal Medicine] - in one week
Prescriptions:
New
lidocaine 4 % Adhesive Patch,Medicated
2 patch topical DAILY Qty: 10 0RF
amlodipine 5 mg Tablet
5 mg PO DAILY Qty: 30 0RF
Continued
levothyroxine [Synthroid] 88 mcg Tablet
88 mcg PO DAILY
flecainide 100 mg Tablet
100 mg PO BID
metoprolol succinate 25 mg Tablet Extended Release 24 Hr
25 mg PO DAILY
ezetimibe 10 mg Tablet
10 mg PO HS
rosuvastatin 5 mg Tablet
5 mg PO HS
Eliquis 5 mg Tablet
5 mg PO BID
acetaminophen [Tylenol] 325 mg Tablet
650 mg PO DAILYPRN PRN (Reason: mild pain)
prochlorperazine maleate 5 mg Tablet
5 mg PO Q6HPRN PRN (Reason: nausea/vomiting)
triamcinolone acetonide 0.1 % Cream
1 applic TOPICAL BIDPRN PRN (Reason: rosacea)
ondansetron 8 mg Tablet,Disintegrating
8 mg PO Q8H PRN (Reason: nausea/vomiting)
pantoprazole 40 mg Tablet,Delayed Release (Dr/Ec)
40 mg PO BID
simethicone 80 mg Tablet,Chewable
160 mg PO DAILYPRN PRN (Reason: gas)
zolpidem 6.25 mg Tablet,Ext Release Multiphase
6.25 mg PO HS
Patient Comments:
06/08/2025, filled on 05/29/2025 for 30 tabs for 30-day supply per [facility].
Slow-Mag
2 tab PO BID
Voltaren 1 % gel
1 applic topical BIDPRN PRN (Reason: apply to B/L knees)
Discontinued
chlorthalidone 25 mg Tablet
12.5 mg PO DAILY MDD `
sertraline 50 mg Tablet
75 mg PO DAILY
Discharge Orders:
Discharge Patient (As Directed); Ordered 06/11/25
Ordered By: Shakeel Felix
Discharge Date and Time
Print Language: CHADIAN
--- NOTE | 2025-06-11 16:06 | CM ---
Pt discharge to home with O/P PT. Pt has script in her possession. Sister will take patient home in her car. IMM given and placed on chart
== END 2025-06-11 17:12 | disposition home or self-care (01) | DRG 645 ==
LOC: 4 EAST ACU 17:38
PROVIDERS: Emergency Medicine; Nurse Practitioner Family; Physician Assistant; ADMITTING PHYSICIAN Hospitalist; ATTENDING PHYSICIAN Internal Medicine; CONSULT PHYSICIAN Internal Medicine Nephrology; EMERGENCY PHYSICIAN Student in an Organized Health Care Education/Training Program; FAMILY PHYSICIAN Internal Medicine
DX: E22.2 Syndrome of inappropriate secretion of antidiuretic hormone (principal); Z66 Do not resuscitate; K59.00 Constipation, unspecified; I48.0 Paroxysmal atrial fibrillation; Z95.0 Presence of cardiac pacemaker; I10 Essential (primary) hypertension; E03.9 Hypothyroidism, unspecified; F41.9 Anxiety disorder, unspecified; F32.9 Major depressive disorder, single episode, unspecified; Z79.01 Long term (current) use of anticoagulants; Z79.899 Other long term (current) drug therapy; E78.5 Hyperlipidemia, unspecified
CPT/HCPCS: 74177; 80048; 80053; 83690; 83935; 84295; 84300; 84443; 84484; 85025; 93005; 94660; 96361; 96374; 96375; 97116; 97162; 99285; Q9967